=== PATIENT | male | born 1995 | race Two or more races ===

== ENCOUNTER 2017-09-18 17:23 | Emergency (ER) | payer MEDICARE, OTHER ==
[~2017-09-18] VITALS: Ht 172.7 cm; Wt 90.7 kg
[2017-09-18 18:00] LABS: Basophils # (auto) 0.1 uL; Basophils % (auto) 0.8 % (0.0-2.0); Eosinophils # (auto) 0.2 uL; Eosinophils % (auto) 1.5 % (0.0-7.0); Hematocrit 45.9 % (41.0-53.0); Hemoglobin 15.7 g/dL (13.5-17.5); Lymphocytes % (auto) 16.4 % (10.0-50.0); Mean Corpuscular Hemoglobin 31.7 pg (28.0-32.0); Mean Corpuscular Hgb Conc. 34.2 g/dL (32.0-36.0); Mean Corpuscular Volume 92.7 fL (80.0-100.0); Monocytes % (auto) 8.5 % (0.0-12.0); Neutrophils # (auto) 8.7 uL; Neutrophils % (auto) 72.8 % (37.0-80.0); Nucleated Red Blood Cells % 0.1 %; Platelet Count (auto) 225 10^3/uL (140-450); Red Blood Cells 4.95 10^6/uL (4.5-5.90); Red Cell Distribution Width 12.8 % (11.8-14.3)
[2017-09-18 18:18] LABS: Alanine Aminotransferase 50 U/L (16-61); Anion Gap 6 (5-15); Aspartate Aminotransferase 25 U/L (15-37); BUN/Creatinine Ratio 9.6; Blood Urea Nitrogen 10 mg/dL (7-18); Calcium 8.2 mg/dL (8.5-10.1); Carbon Dioxide 26 mmol/L (21-32); Chloride 110 mmol/L (98-107); GFR African American 115 mL/min; GFR Non-African American 95 mL/min; Glucose 101 mg/dL (74-106); Potassium 4.5 mmol/L (3.5-5.1); Sodium 142 mmol/L (136-145)
[2017-09-18 18:23] LABS: Alkaline Phosphatase 102 U/L (45-117); Bilirubin, Total 0.6 mg/dL (0.2-1.0); Total Protein 7.6 g/dL (6.4-8.2)
[2017-09-18] MEDS ORDERED: IOHEXOL 350 MG/ML 100ML IJ ONE (19:27)
[2017-09-18] MEDS ORDERED: SODIUM CHLORIDE 0.9% 1,000 ML IV ONE (19:30)
[2017-09-18 21:35] VITALS: BP 138/76
== END 2017-09-18 22:58 | disposition home or self-care (01) ==
LOC: ER 17:30
DX: R07.89 Other chest pain (principal); J40 Bronchitis, not specified as acute or chronic
CPT/HCPCS: 36415; 71046; 71275; 80053; 84484; 85025; 96360; 96361; 99285; J7030; Q9967; 93005

== ENCOUNTER 2018-01-02 10:37 | Emergency (ER) | payer MEDICARE, OTHER ==
[2018-01-02 11:02] VITALS: BP 100/69
[2018-01-02] MEDS ORDERED: KETOROLAC TROMETH 60MG/2ML VIAL IM ONE (11:30)
== END 2018-01-02 12:47 | disposition home or self-care (01) ==
LOC: ER 10:46
DX: M25.512 Pain in left shoulder (principal); F12.10 Cannabis abuse, uncomplicated
CPT/HCPCS: 93971; 96372; 99284; J1885

== ENCOUNTER → 2021-12-08 | Emergency (ER) | payer MEDICARE, OTHER ==
[~2021-12-08] VITALS: Ht 170.2 cm; Wt 86.2 kg
[2021-12-08 20:33] VITALS: BP 143/85
== END | disposition left against medical advice (07) ==
LOC: ER 20:33
DX: R50.9 Fever, unspecified (principal); Z53.21 Procedure and treatment not carried out due to patient leaving prior to being seen by health care provider

== ENCOUNTER 2023-01-07 08:05 | Emergency (ER) | payer MEDICARE, OTHER ==
[~2023-01-07] VITALS: Ht 170.2 cm; Wt 66.0 kg
[2023-01-07 08:39] VITALS: TEMP 99.8; O2SAT 98
[2023-01-07] MEDS ORDERED: MORPHINE SULFATE 4 MG/ML SYR/VIAL IM ONE (10:15)
[2023-01-07 10:17] VITALS: BP 117/71; PULSE 89; RESP 18
== END 2023-01-07 10:28 | disposition home or self-care (01) ==
LOC: ER 08:05
DX: M79.18 Myalgia, other site (principal); R07.9 Chest pain, unspecified; M25.511 Pain in right shoulder; W18.09XA Striking against other object with subsequent fall, initial encounter; Y93.89 Activity, other specified; Y92.832 Beach as the place of occurrence of the external cause; Y99.8 Other external cause status
CPT/HCPCS: 71045; 73030; 96372; 99284; J2270